=== PATIENT | female | born 2000 | race Hispanic/Latino ===

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

== ENCOUNTER 2020-05-21 15:31 | Emergency (ER) | payer MEDICAID, OTHER ==
[2020-05-21] MEDS ORDERED: IBUPROFEN 400 MG TABLET ONE (17:47)
[2020-05-21] MEDS ORDERED: IOHEXOL-350 75 ML VIAL IV ONE (18:24)
== END 2020-05-21 19:18 | disposition home or self-care (01) ==
LOC: EDH 15:31
DX: N83.201 Unspecified ovarian cyst, right side (principal); N93.9 Abnormal uterine and vaginal bleeding, unspecified
CPT/HCPCS: 36415; 74177; 76856; 80053; 81001; 81025; 85025; 86850; 86900; 86901; 99285; Q9967

== ENCOUNTER 2021-03-16 22:51 | Emergency (ER) | payer MEDICAID ==
[2021-03-17] MEDS ORDERED: MAGNESIUM HYDROXIDE 30 ML/UDCUP ONE (01:05)
[2021-03-17] MEDS ORDERED: LIDOCAINE HCL 2% VISCOUS 15 ML UDCUP ONE (01:05)
== END 2021-03-17 01:56 | disposition home or self-care (01) ==
LOC: EDH 22:51
DX: O26.891 Other specified pregnancy related conditions, first trimester (principal); M94.0 Chondrocostal junction syndrome [Tietze]; Z3A.12 12 weeks gestation of pregnancy

== ENCOUNTER 2024-09-13 00:22 | Emergency (ER) | payer SELFPAY ==
[~2024-09-13] VITALS: Ht 142.2 cm; Wt 48.1 kg
[2024-09-13 00:43] LABS: RAPID GROUP A STREP negative (NEGATIVE)
[2024-09-13 00:48] LABS: SARS-CoV-2, RNA, NAAT NEGATIVE SARS CoV-2 (NEGATIVE)
[2024-09-13] MEDS: DICYCLOMINE HCL 10 MG/5 ML ML PO ONE (00:49)
[2024-09-13] MEDS: ondanSETRON 4MG INJ IVP STA (00:49)
[2024-09-13] MEDS: MAG/ALUM/SIMETH 30 ML UDCUP PO ONE (00:49)
[2024-09-13] MEDS: LIDOCAINE HCL 2% VISCOUS 15 ML UDCUP PO ONE (00:49)
[2024-09-13] MEDS: FAMOTIDINE 20MG VIAL IV STA (00:49)
[2024-09-13] MEDS: 0.9%NACL 1000ML 1,000 ML IV STA (00:49)
[2024-09-13 00:52] LABS: INFLUENZA TYPE A Negative For Type A (NEGATIVE); INFLUENZA TYPE B Negative For Type B (NEGATIVE)
[2024-09-13 01:07] LABS: BASOPHILS # (AUTO) 0.01 K/uL (0.00-0.20); BASOPHILS % (AUTO) 0.1 % (0.0-5.0); EOSINOPHILS % (AUTO) 1.2 % (0.0-8.0); HEMATOCRIT 37.4 % (36-48); IMMATURE GRANULOCYTE ABSOLUTE 0.02 K/uL (0-1); LYMPHOCYTES # (AUTO) 1.2 K/uL (1.0-4.8); LYMPHOCYTES % (AUTO) 15.1 % (21.0-51.0); MEAN CORPUSCULAR HGB CONC 33.7 g/dL (32.0-36.0); MONOCYTES # (AUTO) 0.7 K/uL (0.1-1.0); MONOCYTES % (AUTO) 8.6 % (3.0-13.0); NEUTROPHILS % (AUTO) 74.8 % (40.0-77.0); PLATELET COUNT (AUTO) 232 K/uL (130-400); RED CELL DISTRIBUTION WIDTH 12.4 % (11.0-15.5); WHITE BLOOD COUNT (AUTO) 8.1 K/uL (4.8-10.8)
[2024-09-13 01:19] LABS: CREATININE 0.7 mg/dL (0.5-1.0); POTASSIUM 3.6 mmol/L (3.5-5.1)
[2024-09-13 01:24] LABS: ALBUMIN 3.8 g/dL (3.5-5.0); BILIRUBIN,TOTAL 1.6 mg/dL (0.2-1.0); TOTAL PROTEIN, SERUM 7.4 g/dL (6.0-8.3)
[2024-09-13 02:03] LABS: APPEARANCE,URINE CLEAR (CLEAR); BILIRUBIN,URINE NEGATIVE (NEGATIVE); COLOR,URINE LIGHT-YELLOW (YELLOW); GLUCOSE, URINE (UA) NEGATIVE (NEGATIVE); KETONES,URINE NEGATIVE (NEGATIVE); LEUKOCYTE ESTERASE ,URINE NEGATIVE Leu/uL (NEGATIVE); NITRATE,URINE NEGATIVE (NEGATIVE); OCCULT BLOOD,URINE NEGATIVE (NEGATIVE); PROTEIN,URINE 10 mg/dL (NEGATIVE); UROBILINOGEN,URINE 0.2 mg/dL (0.2-1.0)
[2024-09-13 02:04] LABS: HCG,QUALITATIVE URINE NEGATIVE (NEGATIVE)
[2024-09-13 02:05] LABS: ADD UA MICROSCOPIC YES
[2024-09-13 02:06] LABS: BACTERIA,URINE FEW /HPF (None Seen); MUCUS,URINE RARE LPF (None Seen); RBC,URINE 0-1 /HPF (0-1); SQUAMOUS EPITHELIAL CELL,UR FEW /HPF (0-2); WBC,URINE 0-1 /HPF (0-1)
[2024-09-13] MEDS ORDERED: ONDA-243 PO (02:27)
[2024-09-13] MEDS ORDERED: FAMO-136 PO (02:27)
[2024-09-13 03:07] VITALS: BP 117/76; PULSE 92; RESP 18; TEMP 98.4; O2SAT 99
== END 2024-09-13 03:08 | disposition home or self-care (01) ==
LOC: EDH 00:22
DX: K52.9 Noninfective gastroenteritis and colitis, unspecified (principal); Z20.822 Contact with and (suspected) exposure to COVID-19; R11.2 Nausea with vomiting, unspecified; Z98.890 Other specified postprocedural states
CPT/HCPCS: 99284; 96374; 87635; 96375; 80053; 85025; 87880; 87804 ×2; 81001; 81025; 36415; J3490; J7030; J2405

== ENCOUNTER 2025-11-04 15:09 | Emergency (ER) | payer MEDICAID ==
[~2025-11-04] VITALS: Ht 142.2 cm; Wt 43.5 kg
--- NOTE | 2025-11-04 15:47 | ERN ---
General Chief Complaint: Flu Symptoms Stated Complaint: COUGH,CONGESTION,HEADACHE,NAUSEA,VOMITING Time Seen by MD: 15:11 Source: patient History of Present Illness Initial Comments With Briana Travis female came to ED with chief complaint of cough and congestion since last seen. She reports that he had contact with sick coworkers last week and from she started having cough severe in intensity the made her nauseous and had 1 episode of vomiting. She reports she is not able to hold any food down and sometimes she had blood in the sputum. She reports feeling weak, malaise, fever, headache. She took Tamiflu and aspirin but had no relief with the medication that made her come to the ED. She denies allergy or yellowish sputum. Timing/Duration: 1 week Severity: moderate Modifying Factors: improves with rest Associated Symptoms: cough, fever/chills, headaches, loss of appetite, malaise, nausea/vomiting, weakness Allergies: Coded Allergies: No Known Drug Allergies (Unverified Allergy, Unknown, 05/21/20) Home Meds Active Scripts Electrolytes,Oral/Multivit/Aas (Hydrating Electrolyte Pwdr Pkt) 1 Each Powd.pack, 1 EACH PO BID for 3 Days, #6 0 Refills Prov:ZARA LEVINE MD 11/04/25 Guaifenesin/Dextromethorphan (Robitussin Epdqk-Ocmah-Qckm Dm) 200 Mg-10 Mg Capsule, 1 CAP PO BID for 10 Days, #20 CAP 0 Refills Prov:ZARA LEVINE MD 11/04/25 Azithromycin (Azithromycin) 500 Mg Tablet, 1 TAB PO DAILY for 5 Days, #5 TAB 0 Refills Prov:ZARA LEVINE MD 11/04/25 Ondansetron (Ondansetron Odt) 4 Mg Tab.rapdis, 4 MG PO Q6HPRN PRN for nausea, #16 TAB 0 Refills Prov:DARYL BARRIENTOS CNP 09/13/24 Famotidine (Pepcid) 20 Mg Tablet, 1 TAB PO DAILY for 14 Days, #60 TAB 0 Refills Prov:DARYL BARRIENTOS [employer] 09/13/24 Past Medical History Past Medical History: No Pertinent History Past Surgical History: Constitutional: (+) fever, (+) malaise EENTM: (+) nose congestion, (+) Throat swelling Respiratory: (+) cough, (+) short of breath Cardiovascular: (-) chest pain, (-) edema, (-) palpitations, (-) syncope, (-) dyspnea on exertion, (-) other documentation Gastrointestinal/Abdominal: (+) nausea, (+) vomiting; (-) diarrhea, (-) abdominal pain, (-) abdominal distention, (-) constipation, (-) rectal bleeding, (-) dark stool/melena, (-) other documentation Genitourinary: (-) vaginal discharge, (-) vaginal bleeding, (-) dysuria, (-) frequency, (-) hematuria, (-) pain, (-) other documentation Musculoskeletal: (-) Neck pain, (-) back pain, (-) Flank Pain, (-) joint pain, (-) joint swelling, (-) muscle pain, (-) muscle stiffness, (-) gout, (-) other documentation Skin: (-) laceration, (-) contusion, (-) abrasion, (-) abscess, (-) rash, (-) change in color, (-) change in hair, (-) change in nails, (-) diaphoresis, (-) dryness, (-) other documentation Neuro: (+) headache; (-) altered mental status, (-) syncope, (-) paralysis, (-) numbness, (-) seizure, (-) pre-existing deficit, (-) tremors, (-) weakness, (-) dizziness, (-) slurred speech, (-) vertigo, (-) other documentation Psych: (-) depression, (-) suicidal ideation, (-) anxiety, (-) emotional problems, (-) auditory hallucinations, (-) visual hallucinations Hematologic/Lymphatic: (-) anemia, (-) blood clots, (-) easy bleeding, (-) easy bruising, (-) swollen glands, (-) other documentation Immunological/Allergic: (-) food allergy, (-) grass allergy, (-) mold allergy, (-) pollen allergy, (-) HIV/AIDS, (-) transplant, (-) othe documentation Review of Systems: was completed, & the rest were negative. Physical Exam General Appearance: (+) moderate distress Orientation: (+) alert, (+) oriented x 3 Head/Face Trauma: No Eye: bilateral eye normal inspection Ear, Nose, Throat: (+) hearing grossly normal, (+) normal ENT inspection, (+) moist mucous membraine, (+) normal TM, (+) pharyngeal erythema, (+) nasal drip, (+) nasal congestion Neck: (+) normal inspection, (+) supple, (+) full range of motion, (+) non- tender Respiratory: (+) chest non-tender, (+) crackles Heart: (+) regular, (+) no gallop Vascular: (+) no edema, (+) normal peripheral pulse Gastrointestinal: (+) soft, (+) non-tender, (+) no organomegaly, (+) bowel sound present Breast Exam: (+) deferred Genital: (+) deferred Rectal: (+) deferred Back: (+) normal inspection Extremities: (+) normal range of motion, (+) non-tender, (+) normal inspection, (+) no pedal edema Neurologic/Psychiatric: (+) normal speech, (+) no motor defecits, (+) no sensory deficits Skin: (+) warm/dry Lymphatic: (+) no adenopathy Results Laboratory and Microbiology Lab and Micro Result Laboratory Tests Test 11/04/25 15:53 11/04/25 16:21 White Blood Count 4.9 K/uL (4.8-10.8) Red Blood Count 4.28 MIL/uL (4.00-5.50) Hemoglobin 12.7 g/dL (12.0-16.0) Hematocrit 39.7 % (36-48) Mean Corpuscular Volume 92.8 fL (79-99) Mean Corpuscular Hemoglobin 29.7 pg (27.0-33.0) Mean Corpuscular Hemoglobin Concent 32.0 g/dL (32.0-36.0) Red Cell Distribution Width 13.1 % (11.0-15.5) Platelet Count 221 K/uL (130-400) Mean Platelet Volume 10.7 fL (7.5-10.5) H Nucleated Red Blood Cells 0.0 % (0.0-0.19) Sodium Level 140 mmol/L (136-145) Potassium Level 3.6 mmol/L (3.5-5.1) Chloride Level 102 mmol/L (101-111) Carbon Dioxide Level 33 mmol/L (21-32) H Blood Urea Nitrogen 11 mg/dL (7-18) Creatinine 0.6 mg/dL (0.5-1.0) Glomerular Filtration Rate Calc 128 mL/min (>90) Random Glucose 65 mg/dL (70-105) L Total Calcium 8.9 mg/dL (8.5-10.1) Influenza Type A Antigen Negative For Type A Influenza Type B Antigen Negative For Type B SARS-CoV-2 Antigen (Rapid) PRESUMPTIVE NEGATIVE Labs Reviewed?: Yes EKG/XRAY/US/CT/MRI X-RAY Comment IMAGING REPORT Signed PATIENT: TOO BAE MR#: [id number] : 2000 SEX: F AGE: 25 LOCATION: [facility] ORDER [id number] STATUS: [facility] REPORT#: [id number] SERVICE [id number] REASON: shortness of breath ORDERING PHYSICIAN: ZARA LEVINE MD PROCEDURE: CXR1VW - CHEST 1VW EXAM: CR Chest, 1 View. CLINICAL HISTORY: shortness of breath COMPARISON: None provided. FINDINGS: LUNGS: There is no mass, infiltrate, or acute pulmonary abnormality. PLEURAL SPACES: No evidence of pleural effusion or pneumothorax. MEDIASTINUM: The cardiomediastinal silhouette is within normal limits. BONES: No acute osseous abnormality. IMPRESSION: No acute cardiopulmonary pathology is evident. /[place] DICTATED BY: DEVORA MORAN MD DATE: 11/04/251751 ELECTRONICALLY SIGNED BY: DEVORA MORAN MD DATE: 11/04/251751 [facility] Differential diagnosis: Acute rhinosinusitis/mild lower respiratory tract infection The patient came to the ED with chief complaint of cough and congestion since In the ED we did CBC, BMP The patient had chest x-ray, influenza a,b, COVID rapid antigen test The patient received Robitussin 10 mL for cough,1 L NS bolus for hydration The patient condition is stable and she can be discharged on azithromycin 500 mg for 5 days and Robitussin for symptomatic relief ED Course Orders Procedure Category Date Status Time Covid19 (Sars Antigen LAB 11/04/25 Complete Rapid) 15:36 Influenza Type A & B, LAB 11/04/25 Complete Rapid 15:36 Cbc Without LAB 11/04/25 Complete Differential 15:36 Basic Metabolic Panel LAB 11/04/25 Complete 15:36 Chest 1vw RAD 11/04/25 Resulted 15:36 0.9%Nacl 1000ml (Ns PHA 11/04/25 Complete 1000ml) 17:00 Guaifenesin-Dm PHA 11/04/25 Complete 200/20mg 10ml 17:00 Current Medications Medications (Trade) Dose Ordered Sig/Mk Route PRN Reason Start Time Stop Time Status Last Admin Dose Admin Guaifenesin/ Dextromethorphan (RobiTUSSin DM 200/20MG 10ML) 10 ml ONCE ONCE PO 11/04/25 17:00 11/04/25 17:01 DC Sodium Chloride 1,000 ml @ 0 mls/hr ONCE ONCE IV 11/04/25 17:00 11/04/25 17:01 DC Vital Signs Date Time Temp Pulse Resp B/P (MAP) Pulse Ox O2 Delivery O2 Flow Rate FiO2 11/04/25 15:11 98.4 77 14 111/76 97 Room Air 0 DX & DISP Disposition: Discharge Departure Impression: Primary Impression: Acute upper respiratory infection, unspecified Critical Time: 30 minutes Condition: Stable Scripts Electrolytes,Oral/Multivit/Aas (Hydrating Electrolyte Pwdr Pkt) 1 Each Powd.pack 1 EACH PO BID for 3 Days, #6 0 Refills Prov: ZARA LEVINE MD 11/04/25 Guaifenesin/Dextromethorphan (Robitussin [place]-Jybch-Tcdb Dm) 200 Mg-10 Mg Capsule 1 CAP PO BID for 10 Days, #20 CAP 0 Refills Prov: ZARA LEVINE MD 11/04/25 Azithromycin (Azithromycin) 500 Mg Tablet 1 TAB PO DAILY for 5 Days, #5 TAB 0 Refills Prov: ZARA LEVINE MD 11/04/25 Additional Instructions: Use saline nasal spray, steam inhalation, and plenty of fluids to help clear condition and reduce cough Take prescribed medications as directed and use acetaminophen/ibuprofen for discomfort if needed Return to ER immediately if you develop high fever, worsening facial pain or swelling, vision changes, severe headache, trouble breathing, or symptoms lasting longer than 10 days Follow up primary care physician in 3 days for continued symptoms and further management Referrals: SELF,REFERRAL (PCP) MALACHI CADET MD Time of Disposition: 17:23 ZARA LEVINE MD Nov 04, 2025 15:47 CARLOS RICARDO MD Nov 04, 2025 17:23
[2025-11-04 15:59] LABS: NUCLEATED RED BLOOD CELLS 0.0 % (0.0-0.19); PLATELET COUNT (AUTO) 221.0 K/uL (130-400); RED BLOOD CELL COUNT(AUTO) 4.28 MIL/uL (4.00-5.50); RED CELL DISTRIBUTION WIDTH 13.1 % (11.0-15.5); WHITE BLOOD COUNT (AUTO) 4.9 K/uL (4.8-10.8)
[2025-11-04 16:07] LABS: CREATININE 0.6 mg/dL (0.5-1.0); GLOMERULAR FILTR. RATE CALC 128.0 mL/min (>90); GLUCOSE,RANDOM 65.0 mg/dL (70-105); SODIUM SERUM 140.0 mmol/L (136-145); UREA NITROGEN, BLOOD 11.0 mg/dL (7-18)
[2025-11-04 16:48] LABS: COVID19 (SARS ANTIGEN RAPID) PRESUMPTIVE NEGATIVE (NEGATIVE); INFLUENZA TYPE A Negative For Type A (NEGATIVE); INFLUENZA TYPE B Negative For Type B (NEGATIVE)
--- NOTE | 2025-11-04 16:53 | HMCIMG ---
EXAM: CR Chest, 1 View. CLINICAL HISTORY: shortness of breath COMPARISON: None provided. FINDINGS: LUNGS: There is no mass, infiltrate, or acute pulmonary abnormality. PLEURAL SPACES: No evidence of pleural effusion or pneumothorax. MEDIASTINUM: The cardiomediastinal silhouette is within normal limits. BONES: No acute osseous abnormality. IMPRESSION: No acute cardiopulmonary pathology is evident. /[place]
[2025-11-04 17:43] VITALS: BP 124/71; PULSE 73; RESP 20; TEMP 99.1; O2SAT 97
[2025-11-04] MEDS: 0.9%NACL 1000ML 1,000 ML IV ONE (17:44)
[2025-11-04] MEDS: guaiFENesin-DM 200/20MG 10ML PO ONE (17:45)
== END 2025-11-04 17:45 | disposition home or self-care (01) ==
LOC: EDH 15:09
DX: J06.9 Acute upper respiratory infection, unspecified (principal); Z98.890 Other specified postprocedural states; Z20.822 Contact with and (suspected) exposure to COVID-19
CPT/HCPCS: 99284; 71045; 87426; 80048; 85027; 87804 ×2; 36415; J7030; 99283